=== PATIENT | female | born 1945 | race Two or more races ===

== ENCOUNTER 2023-06-12 05:23 | Inpatient (IN) | payer MEDICARE, BC ==
[~2023-06-12] VITALS: Ht 154.9 cm; Wt 63.5 kg
[2023-06-12] MEDS ORDERED: ONDA4TAB5 PO (07:49)
[2023-06-12] MEDS ORDERED: ZOLP5TAB8 PO (07:49)
[2023-06-12] MEDS ORDERED: PANT40TA2 PO (07:49)
[2023-06-12] MEDS ORDERED: ONDA4TAB5 SL (07:49)
[2023-06-12] MEDS ORDERED: BUPR-319 PO (07:49)
[2023-06-12] MEDS ORDERED: SULF1TAB48 PO (07:49)
[2023-06-12] MEDS ORDERED: LAMO200T10 PO (07:49)
[2023-06-12] MEDS ORDERED: DULO60CA45 PO (07:49)
[2023-06-12 08:00] VITALS: BP 147/80; TEMP 98; O2SAT 100
[2023-06-12] MEDS ORDERED: MAGNESIUM HYDROXIDE 30 ML UDC PO PRN (08:00)
[2023-06-12] MEDS ORDERED: OMEP40CA21 PO (08:02)
[2023-06-12] MEDS ORDERED: TOLT2CAP PO (08:02)
[2023-06-12] MEDS: BLOOD SUGAR DIAGNOSTIC 1 EACH STRIP IN ONE (09:07)
[2023-06-12] MEDS ORDERED: LamoTRIgine 25 MG TABLET PO SCH (10:30)
[2023-06-12] MEDS: MAG HYDROX/AL HYDROX/SIMETH 30 ML UDC PO PRN (11:03)
[2023-06-12] MEDS: LamoTRIgine 100 MG TABLET PO SCH (11:06)
[2023-06-12 13:20] LABS: BASOPHILS # (AUTO) 0.1 K/uL (0.0-0.2); BASOPHILS % (AUTO) 1.2 % (0.0-2.0); EOSINOPHILS # (AUTO) 0.2 K/uL (0.0-0.7); EOSINOPHILS % (AUTO) 4.7 % (0.0-6.0); HEMATOCRIT 39 % (33-45); HEMOGLOBIN 12.9 g/dL (11.5-14.8); LYMPHOCYTES # (AUTO) 0.7 K/uL (0.8-4.8); LYMPHOCYTES % (AUTO) 15.2 % (20.0-44.0); MEAN CORPUSCULAR HEMOGLOBIN 30 PG (26.0-33.0); MEAN CORPUSCULAR HGB CONC 33 g/dl (31.0-36.0); MEAN CORPUSCULAR VOLUME 90 fL (82-100); MONOCYTES # (AUTO) 0.3 K/uL (0.1-1.30); MONOCYTES % (AUTO) 7.5 % (2.0-12.0); NEUTROPHILS # (AUTO) 3.2 K/uL (1.8-8.9); NEUTROPHILS % (AUTO) 71.4 % (43.0-81.0); PLATELET COUNT (AUTO) 203 K/uL (150-450); RED BLOOD CELL COUNT(AUTO) 4.27 MIL/uL (4.0-5.2); RED CELL DISTRIBUTION WIDTH 13.4 % (11.5-15.0); WHITE BLOOD COUNT (AUTO) 4.4 K/uL (4.3-11.0)
[2023-06-12 13:34] LABS: ALANINE AMINOTRANSFERASE 22 U/L (12-78); ALKALINE PHOSPHATASE 97 U/L (46-116); ASPARTATE AMINOTRANSFERASE 15 U/L (15-37); BILIRUBIN,TOTAL 0.5 mg/dL (0.2-1.0); CALCIUM, SERUM 9.7 mg/dL (8.5-10.1); CARBON DIOXIDE 26 mmol/L (21-32); CHLORIDE 102 mmol/L (98-107); CREATININE 0.9 mg/dL (0.6-1.3); GLUCOSE 92 mg/dL (74-106); POTASSIUM 4.1 mmol/L (3.5-5.1); SODIUM SERUM 140 mmol/L (136-145); UREA NITROGEN, BLOOD 17 mg/dL (7-18)
[2023-06-12 13:46] LABS: THYROID STIMULATING HORMONE 0.562 uIU/mL (0.358-3.74)
[2023-06-12 16:00] VITALS: BP 105/53; TEMP 97.7; O2SAT 99
[2023-06-12] MEDS ORDERED: BISACODYL SUPP (10 MG) 10 MG/SUPP.RECT SUPP.RECT RC PRN (16:00)
[2023-06-12] MEDS: risperiDONE 0.25 MG TABLET PO SCH (17:55)
[2023-06-12] MEDS: TOLTERODINE 2 MG CAP.SR PO SCH (17:55)
[2023-06-12] MEDS: DOCUSATE SODIUM 100 MG CAPSULE PO SCH (17:55)
[2023-06-12] MEDS: LACTULOSE 10 G/15 ML UDC (PYXIS) PO PRN (18:05)
[2023-06-12] MEDS: ONDANSETRON 4 MG TAB.RAPDIS SL PRN (18:42)
[2023-06-12 20:20] VITALS: BP 126/79; TEMP 98.4; O2SAT 100
[2023-06-13] MEDS: PANTOPRAZOLE 40 MG TABLET.DR PO SCH (06:34)
[2023-06-13 08:00] VITALS: BP 100/74; TEMP 98.1; O2SAT 99
[2023-06-13 08:01] LABS: CHOLESTEROL 239 mg/dL (<200); HDL CHOLESTEROL 58 mg/dL (40-60); LDL 148 mg/dL (0-99); TRIGLYCERIDES 112 mg/dL (30-150)
[2023-06-13 08:04] LABS: ALBUMIN 3.7 g/dL (3.4-5.0); BILIRUBIN,TOTAL 0.5 mg/dL (0.2-1.0); CALCIUM, SERUM 9.6 mg/dL (8.5-10.1); POTASSIUM 4.4 mmol/L (3.5-5.1); TOTAL PROTEIN, SERUM 6.7 g/dL (6.4-8.2)
[2023-06-13 08:31] LABS: CREATININE 1.1 mg/dL (0.6-1.3)
[2023-06-13] MEDS: POLYETHYLENE GLYCOL 3350 17 GM POWD.PACK PO SCH (08:46)
[2023-06-13] MEDS: BUPROPION XL 150 MG TAB.ER.24 PO SCH (08:48)
[2023-06-13] MEDS: MINERAL OIL 133 ML (PYXIS) 1 EA ENEMA RC ONE (12:26)
[2023-06-13 16:00] VITALS: BP 106/60; TEMP 98.6; O2SAT 97
[2023-06-13 20:36] VITALS: BP 104/67; TEMP 98.4; O2SAT 99
[2023-06-13] MEDS: ATORVASTATIN 10 MG TABLET PO SCH (21:20)
[2023-06-14 08:00] VITALS: BP 103/69; TEMP 98.2; O2SAT 98
[2023-06-14] MEDS: TOLTERODINE 2 MG CAP.SR PO SCH (10:03)
[2023-06-14] MEDS: FAMOTIDINE (20 MG) 20 MG TABLET PO SCH (11:26)
[2023-06-14] MEDS: MINERAL OIL 133 ML (PYXIS) 1 EA ENEMA RC ONE (12:25)
[2023-06-14 12:29] LABS: BASOPHILS % (AUTO) 0.7 % (0.0-2.0); EOSINOPHILS # (AUTO) 0.1 K/uL (0.0-0.7); EOSINOPHILS % (AUTO) 1.7 % (0.0-6.0); HEMATOCRIT 37 % (33-45); HEMOGLOBIN 12.5 g/dL (11.5-14.8); LYMPHOCYTES # (AUTO) 0.5 K/uL (0.8-4.8); LYMPHOCYTES % (AUTO) 10.7 % (20.0-44.0); MEAN CORPUSCULAR HEMOGLOBIN 31 PG (26.0-33.0); MEAN CORPUSCULAR HGB CONC 34 g/dl (31.0-36.0); MEAN CORPUSCULAR VOLUME 91 fL (82-100); MONOCYTES # (AUTO) 0.4 K/uL (0.1-1.30); MONOCYTES % (AUTO) 8.2 % (2.0-12.0); NEUTROPHILS # (AUTO) 3.9 K/uL (1.8-8.9); NEUTROPHILS % (AUTO) 78.7 % (43.0-81.0); PLATELET COUNT (AUTO) 191 K/uL (150-450); RED BLOOD CELL COUNT(AUTO) 4.08 MIL/uL (4.0-5.2); WHITE BLOOD COUNT (AUTO) 4.9 K/uL (4.3-11.0)
[2023-06-14] MEDS: SUCRALFATE 1 G/10 ML UDC GT SCH (12:42)
[2023-06-14 12:46] LABS: ALANINE AMINOTRANSFERASE 18 U/L (12-78); ALBUMIN 3.7 g/dL (3.4-5.0); ALKALINE PHOSPHATASE 85 U/L (46-116); ASPARTATE AMINOTRANSFERASE 15 U/L (15-37); BILIRUBIN,DIRECT 0.1 mg/dL (0.0-0.2); BILIRUBIN,TOTAL 0.5 mg/dL (0.2-1.0); CALCIUM, SERUM 9.4 mg/dL (8.5-10.1); CARBON DIOXIDE 27 mmol/L (21-32); CHLORIDE 98 mmol/L (98-107); CREATININE 0.9 mg/dL (0.6-1.3); GLUCOSE 115 mg/dL (74-106); LIPASE 29 U/L (16-77); POTASSIUM 4.1 mmol/L (3.5-5.1); SODIUM SERUM 134 mmol/L (136-145); TOTAL PROTEIN, SERUM 6.7 g/dL (6.4-8.2); UREA NITROGEN, BLOOD 16 mg/dL (7-18)
[2023-06-14 16:00] VITALS: BP 117/73; TEMP 98.2; O2SAT 100
[2023-06-14] MEDS: risperiDONE 0.25 MG TABLET PO SCH (16:46)
[2023-06-14] MEDS: SUCRALFATE 1 G TABLET PO SCH (17:22)
[2023-06-14 20:00] VITALS: BP 135/75; TEMP 98.2; O2SAT 95
[2023-06-15 08:00] VITALS: BP 119/69; TEMP 97.9; O2SAT 95
[2023-06-15] MEDS ORDERED: ENSURE ENLIVE CHOC 237 ML CAN PO SCH (08:00)
[2023-06-15] MEDS: ENSURE ENLIVE 237 ML LIQUID (VANILLA) PO SCH (09:00)
[2023-06-15] MEDS: LORAZEPAM 0.5 MG TABLET PO PRN (11:52)
[2023-06-15 16:00] VITALS: BP 123/79; TEMP 97.4; O2SAT 98
[2023-06-15 20:00] VITALS: BP 122/68; TEMP 97.8; O2SAT 96
[2023-06-15] MEDS: MIRTAZAPINE 15 MG TABLET PO SCH (21:50)
[2023-06-16 08:00] VITALS: BP 103/63; TEMP 97.8; O2SAT 100
[2023-06-16] MEDS: OLANZAPINE 10 MG VIAL IM ONE (09:17)
[2023-06-16 16:00] VITALS: BP_SYST 101; BP_SYST 119; BP_DIAS 76; BP_DIAS 90; TEMP 97.6; TEMP 98.9; O2SAT 96; O2SAT 97
[2023-06-16 20:00] VITALS: BP 116/71; TEMP 98.4; O2SAT 99
[2023-06-16] MEDS: risperiDONE 1 MG TABLET PO SCH (21:27)
[2023-06-17] MEDS: ZOLPIDEM TARTRATE 5 MG TABLET PO PRN (02:14)
[2023-06-17 08:00] VITALS: BP 110/75; TEMP 98.2; O2SAT 97
[2023-06-17 16:00] VITALS: BP 112/72; TEMP 97.9; O2SAT 96
[2023-06-17 20:52] VITALS: BP 110/69; TEMP 97.9; O2SAT 96
[2023-06-17] MEDS: Z GUARD REMEDY 4 OZ OINT TP SCH (21:21)
[2023-06-18 08:00] VITALS: BP 109/67; TEMP 97.7; O2SAT 97
[2023-06-18] MEDS: LORAZEPAM 1 MG TABLET PO PRN (10:14)
[2023-06-18] MEDS: OLANZAPINE 5 MG TABLET PO SCH (11:51)
[2023-06-18 16:00] VITALS: BP 115/76; TEMP 97.7; O2SAT 98
[2023-06-18 20:29] VITALS: BP 116/76; TEMP 97.9; O2SAT 98
[2023-06-19 08:00] VITALS: BP 101/69; TEMP 98.1; O2SAT 100
[2023-06-19 16:00] VITALS: BP 118/62; TEMP 97.9; O2SAT 98
[2023-06-19 21:35] VITALS: BP 109/62; TEMP 98.2; O2SAT 97
[2023-06-20 08:00] VITALS: BP 111/62; TEMP 98.7; O2SAT 97
[2023-06-20] MEDS: ACETAMINOPHEN 325 MG TABLET PO PRN (08:30)
[2023-06-20 22:16] VITALS: BP 101/60; TEMP 98.4; O2SAT 96
[2023-06-21 08:00] VITALS: BP 126/69; TEMP 97.8; O2SAT 97
[2023-06-21 16:00] VITALS: BP 100/68; TEMP 98; O2SAT 97
[2023-06-21 20:00] VITALS: BP_SYST 110; BP_SYST 139; BP_DIAS 54; BP_DIAS 70; TEMP 97.9; TEMP 98.5; O2SAT 97; O2SAT 98
[2023-06-22 08:00] VITALS: BP 109/73; TEMP 98.1; O2SAT 97
[2023-06-22 16:00] VITALS: BP 98/53; TEMP 98; O2SAT 98
[2023-06-22 20:00] VITALS: BP 114/70; TEMP 97.6; O2SAT 97
[2023-06-23 08:00] VITALS: BP 118/70; TEMP 98; O2SAT 98
[2023-06-23 16:00] VITALS: BP 113/64; TEMP 98; O2SAT 98
[2023-06-23 20:54] VITALS: BP 116/70; TEMP 98; O2SAT 98
[2023-06-24 08:00] VITALS: BP 115/65; TEMP 97.8; O2SAT 100
[2023-06-24 16:00] VITALS: BP 115/56; TEMP 97.7; O2SAT 97
[2023-06-24 21:17] VITALS: BP 114/62; TEMP 97.9; O2SAT 98
[2023-06-25 08:00] VITALS: BP 125/79; TEMP 97.9; O2SAT 97
== END 2023-06-25 13:05 | disposition home or self-care (01) | DRG 885 ==
LOC: GPS 05:56
PROVIDERS: ADMIT Psychiatry & Neurology Psychiatry; ATTEND Nurse Practitioner Acute Care
DX: F31.64 Bipolar disorder, current episode mixed, severe, with psychotic features (principal); R45.851 Suicidal ideations; F29 Unspecified psychosis not due to a substance or known physiological condition; Z79.899 Other long term (current) drug therapy; K21.9 Gastro-esophageal reflux disease without esophagitis; F60.3 Borderline personality disorder; Z20.822 Contact with and (suspected) exposure to COVID-19; Z90.710 Acquired absence of both cervix and uterus; Z90.49 Acquired absence of other specified parts of digestive tract; Z98.890 Other specified postprocedural states; M19.90 Unspecified osteoarthritis, unspecified site; K58.1 Irritable bowel syndrome with constipation
CPT/HCPCS: 36415; 70450-TC; 74018; 80048-TC; 80053-TC; 80061-TC; 80076-TC; 82565-TC; 82962-TC; 83690-TC; 84443-TC; 84484-TC; 85025-TC; 87081-TC; J3490; Q0162